=== PATIENT | female | born 1960 | race Two or more races ===

== ENCOUNTER 2017-06-11 12:03 | Emergency (ER) | payer OTHER ==
[2017-06-11 12:08] VITALS: RESP 16
[2017-06-11] MEDS ORDERED: OXYMETAZOLINE 30 ML NASAL SPRAY ONE (13:39)
--- NOTE | 2017-06-11 13:40 | EDPHY ---
H & P Stated Complaint: BLOODY NOSE LEFT SIDE FOR 20 MINUTES Time Seen by Provider: 06/11/17 13:35 HPI/ROS: CHIEF COMPLAINT: Epistaxis HISTORY OF PRESENT ILLNESS: Patient is a 57-year-old female with diabetes who comes to the emergency department complaining bloody nose from left side. It began after blowing her nose this morning. It is present for 20 min prior to arrival. She had nasal cap in place now but is swallowing blood. She denies trauma. She denies recent fevers or infections. REVIEW OF SYSTEMS: Constitutional: denies: chills, fever, recent illness, recent injury EENTM: See HPI Respiratory: denies: cough, shortness of breath Cardiac: denies: chest pain, irregular heart rate, lightheadedness, palpitations Gastrointestinal/Abdominal: denies: abdominal pain, diarrhea, nausea, vomiting, blood streaked stools Genitourinary: denies: dysuria, frequency, hematuria, pain Musculoskeletal: denies: joint pain, muscle pain Skin: denies: lesions, rash, jaundice, bruising Neurological: denies: headache, numbness, paresthesia, tingling, dizziness, weakness Hematologic/Lymphatic: denies: blood clots, easy bleeding, easy bruising Immunologic/allergic: denies: HIV/AIDS, transplant EXAM: GENERAL: Well-appearing, well-nourished and in no acute distress. HEAD: Atraumatic, normocephalic. EYES: Pupils equal round and reactive to light, extraocular movements intact, sclera anicteric, conjunctiva are normal. ENT: TMs normal, left-sided epistaxis, oropharynx clear without exudates. Moist mucous membranes. NECK: Normal range of motion, supple without lymphadenopathy or JVD. LUNGS: Breath sounds clear to auscultation bilaterally and equal. No wheezes rales or rhonchi. HEART: Regular rate and rhythm without murmurs, rubs or gallops. ABDOMEN: Soft, nontender, normoactive bowel sounds. No guarding, no rebound. No masses appreciated. BACK: No CVA tenderness, no spinal tenderness, step-offs or deformities EXTREMITIES: Normal range of motion, no pitting or edema. No clubbing or cyanosis. NEUROLOGICAL: Cranial nerves II through XII grossly intact. Normal speech, normal gait. 5/5 strength, normal movement in all extremities, normal sensation PSYCH: Normal mood, normal affect. SKIN: Warm, dry, normal turgor, no visible rashes or lesions. Source: Patient Exam Limitations: No limitations - Personal History Current Tetanus Diphtheria and Acellular Pertussis (TDAP): Yes Tetanus Vaccine Date: < 10 YEARS - Medical/Surgical History Hx Asthma: No Hx Chronic Respiratory Disease: No Hx Diabetes: Yes Hx Cardiac Disease: No Hx Renal Disease: No Hx Cirrhosis: No Hx Alcoholism: No Hx HIV/AIDS: No Hx Splenectomy or Spleen Trauma: No Other PMH: HTN, hypothyroid - Family History Significant Family History: No pertinent family hx - Social History Smoking Status: Never smoked Alcohol Use: Sober Drug Use: None Constitutional: Initial Vital Signs Temperature (C) 37 C 06/11/17 12:05 Heart Rate 115 H 06/11/17 12:05 Respiratory Rate 16 06/11/17 12:05 Blood Pressure 180/94 H 06/11/17 12:05 O2 Sat (%) 97 06/11/17 12:05 O2 Delivery Mode Room Air Allergies/Adverse Reactions: shellfish derived Allergy (Verified 06/11/17 12:09) Home Medications: Medication Instructions Recorded Aspirin 81mg (*) 06/11/17 Atorvastatin Calcium 06/11/17 GLIPIZIDE 06/11/17 Hydrochlorothiazide 06/11/17 Levothyroxine 06/11/17 Metformin HCl 06/11/17 amLODIPine BESYLATE 06/11/17 Medical Decision Making ED Course/Re-evaluation: 2:15 p.m. the patient's nares were instilled with Afrin and then cocaine soaked cotton ball placed in the left nares. Coagulation obtained. We will leave this in place and observe. 3:30 p.m. the patient's nose has not started bleeding again. We will leave the cotton ball in place and have instructed them to take out tomorrow. We discussed Afrin and clamp if it begins to bleed again. Patient and family happy with this plan and declines further workup or testing at this time. Differential Diagnosis: Partial list of the Differential diagnosis considered include but were not limited to; anterior epistaxis, posterior pick sepsis, trauma and although unlikely based on the history and physical exam, I also considered infection,. I discussed these differential diagnoses and the plan with the patient as well as the usual and expected course. The patient understands that the diagnosis is provisional and that in medicine we are not always correct and that further workup is often warranted. Usual and customary warnings were given. All of the patient's questions were answered. The patient was instructed to return to the emergency department should the symptoms at all worsen or return, otherwise to followup with the physician as we discussed. - Data Points Medications Given: Discontinued Medications Oxymetazoline HCl (Afrin Nasal Crestline) 2 sprays EACHNARE EDNOW ONE Stop: 06/11/17 13:42 Last Admin: 06/11/17 13:41 Dose: 1 btl Departure - Departure Disposition: Home, Routine, Self-Care Clinical Impression: Acute anterior epistaxis Condition: Fair Instructions: Nosebleed (ED) Referrals: [facility] [Other] - As per Instructions
[2017-06-11] MEDS ORDERED: OXYMETAZOLINE 30 ML NASAL SPRAY EACHNARE ONE (13:41)
[2017-06-11] MEDS ORDERED: COCAINE HCL 4% 4 ML BTL TP ONE (14:03)
[2017-06-11] MEDS ORDERED: SILVER NITRATE APPLICATOR 1 APPL TP ONE (14:04)
[2017-06-11 15:49] VITALS: BP 158/90; PULSE 86; TEMP 98.6; O2SAT 97
== END 2017-06-11 15:52 | disposition home or self-care (01) ==
DX: R04.0 Epistaxis (principal); I10 Essential (primary) hypertension; E11.9 Type 2 diabetes mellitus without complications; Z79.82 Long term (current) use of aspirin; Z79.84 Long term (current) use of oral hypoglycemic drugs